=== PATIENT | male | born 1945 | race Caucasian/White ===

== ENCOUNTER → 2017-08-23 | Outpatient (CLI) | payer MEDICARE ==
[~2017-08-23] MED LIST: ANDR1.62 TOPICAL; DEPA500T3 PO; DIAZ5TAB PO; HYDR-3583 PO; METH10TA PO; NALO1SPR EACH NARE; TAMS5CAP PO; WALKER WHEELS/F1 MIS; ZOLO100T PO
[2017-08-23 09:57] LABS: AUTOMATED NEUTROPHIL # 4.1 TH/MM3 (1.8-7.7); BASOPHIL % 0.3 % (0.0-2.0); EOSINOPHIL # 0.1 TH/MM3 (0-0.4); EOSINOPHIL % 1.3 % (0.0-4.0); HEMATOCRIT 40.4 % (39.0-51.0); HEMOGLOBIN 13.8 GM/DL (13.0-17.0); LYMPH % 16.7 % (9.0-44.0); LYMPHOCYTE # 0.9 TH/MM3 (1.0-4.8); MEAN CELL VOLUME 90.8 FL (80.0-100.0); MEAN CORPUSCULAR HGB CONC 34.1 % (32.0-36.0); MEAN PLATELET VOLUME 8.4 FL (7.0-11.0); MONO % 9.4 % (0.0-8.0); MONOCYTE # 0.5 TH/MM3 (0-0.9); NEUT % 72.3 % (16.0-70.0); PLATELET COUNT 207 TH/MM3 (150-450); RED BLOOD COUNT 4.45 MIL/MM3 (4.50-5.90); RED CELL DISTRIBUTION WIDTH 13.3 % (11.6-17.2); WHITE BLOOD COUNT 5.6 TH/MM3 (4.0-11.0)
[2017-08-23 10:06] LABS: BILIRUBIN, URINE NEG (NEG); BLOOD, URINE NEG (NEG); GLUCOSE,URINE NEG (NEG); KETONE, URINE NEG (NEG); MUCUS URINE FEW /lpf (OCC); NITRITE,URINE NEG (NEG); PH, URINE 6.5 (5.0-8.5); URINE COLOR YELLOW (YELLW/STRAW); URINE LEUKOCYTE ESTERASE TRACE (NEG)
[2017-08-23 10:14] LABS: PROTHROMBIN TIME - PATIENT 10.6 SEC (9.8-11.6)
[2017-08-23 10:27] LABS: ALBUMIN 3.8 GM/DL (3.4-5.0); ALT (GPT) 13 U/L (12-78); AST (GOT) 6 U/L (15-37); BICARBONATE 32.8 MEQ/L (21.0-32.0); BLOOD UREA NITROGEN 15 MG/DL (7-18); CALCIUM 9.6 MG/DL (8.5-10.1); CHLORIDE 102 MEQ/L (98-107); CREATININE 0.96 MG/DL (0.60-1.30); GLOMERULAR FILTRATION RATE 78 ML/MIN (>89); GLUCOSE,FASTING 86 MG/DL (74-99); SODIUM (NA) 139 MEQ/L (136-145)
[2017-08-23 10:29] LABS: ALKALINE PHOSPHATASE 53 U/L (45-117); TOTAL BILIRUBIN ADULT 0.3 MG/DL (0.2-1.0); TOTAL PROTEIN 8.3 GM/DL (6.4-8.2)
--- NOTE | 2017-08-23 10:37 | RADRPT ---
EXAM DATE/TIME: 08/23/2017 09:57 [facility] COMPARISON: No previous studies available for comparison. INDICATIONS : Evaluate for pneumonia, pneumothorax or communicable disease. Pre op laminectomy. MEDICAL HISTORY : pneumothorax SURGICAL HISTORY : tracheostomy ENCOUNTER: Initial ACUITY: 1 day PAIN SCORE: 0/10 LOCATION: Bilateral chest FINDINGS: PA and lateral views of the chest demonstrate the lungs to be symmetrically aerated without evidence of mass, infiltrate or effusion. The cardiomediastinal contours are unremarkable. Osseous structure s are intact. CONCLUSION: No acute disease. Shun Mensah MD on August 23, 2017 at 10:31 Board Certified Radiologist. This report was verified electronically.
--- NOTE | 2017-08-23 14:31 | EKG ---
Date Performed: 08/23/2017 Time Performed: 07:55:30 PTAGE: 71 years EKG: Sinus rhythm NORMAL ECG NO PREVIOUS TRACING DOCTOR: Narciso Ku Interpretating Date/Time 08/23/2017 14:29:33
== END ==
LOC: CPRE 08:27
PROVIDERS: ATTEND Neurological Surgery
DX: Z01.810 Encounter for preprocedural cardiovascular examination (principal); Z01.811 Encounter for preprocedural respiratory examination; Z01.812 Encounter for preprocedural laboratory examination; Z01.818 Encounter for other preprocedural examination; M48.062 Spinal stenosis, lumbar region with neurogenic claudication
CPT/HCPCS: 36415; 71046; 80053; 81001; 85025; 85610; 85730; 87640; 87641; 93005

== ENCOUNTER 2017-08-26 06:49 | Observation (INO) | payer MEDICARE ==
[~2017-08-26] VITALS: Ht 177.8 cm; Wt 92.1 kg
[~2017-08-26 06:49] MED LIST changes: -HYDR-3583 PO; -WALKER WHEELS/F1 MIS
[2017-08-26] MEDS ORDERED: GENTAMICIN SULFATE 80 MG/2 ML VIAL ONE (07:14)
[2017-08-26] MEDS ORDERED: methylPREDNISolone ACETATE 40 MG/ML VIAL ONE (07:14)
[2017-08-26] MEDS ORDERED: THROMBIN (TOPICAL) 5,000 UNIT VIAL ONE (07:14)
[2017-08-26] MEDS ORDERED: GELFOAM SIZE 100 ONE (07:14)
[2017-08-26] MEDS ORDERED: BUPIVACAINE/EPINEPHRINE 0.5% PF 30 ML VIAL ONE (07:14)
[2017-08-26] MEDS ORDERED: METOPROLOL TARTRATE 25 MG TAB PO PRN (07:15)
[2017-08-26] MEDS ORDERED: CHLORHEXIDINE GLUCONATE 2 % 1 PACK (2 CLOTHS) TOPICAL PRN (07:15)
[2017-08-26] MEDS ORDERED: SODIUM CHLORID 0.9% 500 ML IV PRN (07:15)
[2017-08-26] MEDS ORDERED: INSULIN HUMAN REGULAR 1,000 UNITS/10 ML VIAL SQ PRN (07:15)
[2017-08-26] MEDS ORDERED: LACTATED RINGER'S 1000 ML IV PRN (07:15)
[2017-08-26] MEDS ORDERED: ceFAZolin 2 GM PREMIX 50 ML IV SCH (07:15)
[2017-08-26] MEDS ORDERED: POVIDONE IODINE 5% (ANTISEPSIS KIT) 4 APPLICATIONS EACH NARE PRN (07:15)
[2017-08-26] MEDS ORDERED: ACETAMINOPHEN 1000 MG/100 ML 100 ML IV ONE (07:40)
[2017-08-26] MEDS ORDERED: ARTIFICIAL TEARS OPTH OINT 3.5 APPLIC/3.5 GM TUBO ONE (07:40)
[2017-08-26] MEDS ORDERED: HYDROmorphone HCL PF 2 MG/ML VIAL ONE ×2 (08:17→12:48)
[2017-08-26] MEDS ORDERED: FAMOTIDINE 20 MG/2 ML VIAL ONE (08:19)
--- NOTE | 2017-08-26 11:29 | PD.OP ---
Operative Report Date of Surgery: Aug 26, 2017 Preoperative Diagnosis: Lumbar spinal stenosis Postoperative Diagnosis: Lumbar spinal stenosis Procedure: Left L3-4, L4-L5 laminectomy, mesiofacetectomy, foraminotomy, microsurgical resection of the disk Anesthesia: general Surgeon: Sundar Warren Neurological Surgeon(s): Nery Young Operation and Findings: INDICATIONS FOR THE SURGICAL PROCEDURE Mr Ash is a 71 year-old male who presented with intractable back pain and wiley evidence of L4 and L5 lower extremity radiculopathy. He failed maximum nonsurgical management including multiple modalities of conservative treatment as well as pain management interventions by an interventional pain specialist. A surgical decompression was indicated as a last resort. The [id number] details of the procedure, indications, alternatives, risks and potential complications were fully discussed with the patient. The patient fully understood. All the questions were answered. No guarantees were given. The patient voiced requesting the procedure and provided informed consents. The patient was offered the alternative of delaying the procedure and continuing with nonsurgical management. DETAILS OF THE SURGICAL PROCEDURE After the induction of general anesthesia, endotracheal intubation was performed. A Bolton catheter, bilateral MANUEL hose and sequential compression devices were placed and kept throughout the procedure. The patient was positioned prone on a Jt table over a Edgard frame. All pressure points were carefully padded with eggcrate mattress. The eyes were tapped shut after ointment was applied by the anesthesiologist to prevent corneal abrasion. A Faustino hugger was placed over the exposed lower body to maintain control of the core body temperature. The lower lumbar region was prepped and draped in the usual sterile fashion. A spinal needle was placed on the paraspinal muscle and a cross-table lateral x-ray performed with a C-arm. The skin incision was made over the spinous process of L3 and L5 along the midline. Small subcutaneous bleeders were controlled with a bipolar. The subcutaneous tissue and thoracolumbar fascia was opened with the Bovie and the spinous process of L3, L4 and L5 were exposed. Then, using a Real elevator and a Bovie a subperiosteal dissection was performed over the spinous process lamina and facet at L4 and L5 on the right side. A microdiscectomy self- retaining retractor was placed and an instrument was placed underneath the lamina of L4, and another cross-table lateral x-ray performed for radiological confirmation of the level. At this point in the procedure the operating microscope was draped in the usual sterile fashion and brought to the field. The rest of the surgical procedure was performed using microsurgical dissection technique with exception of the closure. Once the level was confirmed, a TPS drill brought to the field and a hemilaminectomy was performed at L3-L4, and L4-L5 on the left side in standard fashion using the AM-8 drill bit, exposing the ligamentum flavum. The superior free border of the ligamentum flavum was from the dura with a ligament dissector and the ligamentum flavum was carefully removed with a 3 mm thin footplate Kerrison. The ligament Flavum and facets were significantly hypertrophic resulting on mass effect on the dural sac. Then, the medial aspect of the facet was drilled and undermined and the exiting L4 and L5 nerve root was identified and followed towards the foramen. A foraminotomy was performed with a 3 mm Kerrison. Then, the TPS drill was used to undermine the base of the spinous process, in order to carry out the decompression across the midline to the contralateral side. The ligamentum flavum across the midline was dissected from the dura with a ligament dissector and carefully removed with a 3 mm thin footplate Kerrison. An appropriate decompression of the dural sac and nerve root was achieved. Epidural veins located laterally to the dural sac were carefully coagulated with a bipolar and incised with microscissors. Gentle medial retraction of the dural sac allowed inspection of the disc space. The patient had a broad-based disc protusion which combined with the hypertrophic facets and ligamentun flavum was producing significant stenosis with mass effect on the dural sac and nerve root. Microdiscectomy was then deemed necessary. The annulus fibrosus was thoroughly coagulated with the bipolar and incised with a #10 blade. Then, a microdiscectomy was carried out in the standard fashion using straight and up-biting pituitary forceps. A reverse angle curet was used to push the extruded disc fragments into the disc space so they could be removed with pituitary forceps. Special attention was placed on the middle nerve root and axilla of the nerve root where disc fragments were found, which were carefully dissected and pushed into the disc space and removed with the Kerrison. A good decompression was achieved. The disc space was then irrigated with antibiotic solution. The incision was then thoroughly irrigated with antibiotic solution and hemostasis secured with the bipolar. A Valsalva maneuver failed to show any cerebrospinal fluid leak or bleeding. The incision was irrigated and closed in layers. 0 Vicryl with interrupted sutures was used to close the thoracolumbar fascia and superficial fascia. The subcutaneous tissue was closed with 3-0 Vicryl. The skin was closed with 4-0 running subcuticular Vicryl. Dermabond was applied to the skin. At the end of the procedure, the sponge, needle and instrument counts were all correct. Estimated blood loss was less than 80 cc. No blood transfusion was given. No intraoperative complications occurred. The patient received prophylactic antibiotics. The patient was then extubated and transferred to the recovery room in stable condition. Sundar Warren MD Aug 26, 2017 11:29
[2017-08-26] MEDS ORDERED: DIVALPROEX SODIUM E.R. 500 MG TAB PO SCH (11:30)
[2017-08-26] MEDS ORDERED: NALOXONE HCL EACH NARE PRN (11:30)
[2017-08-26] MEDS ORDERED: MORPHINE SULFATE 4 MG/ML INJ IV PUSH PRN ×2 (11:30)
[2017-08-26] MEDS ORDERED: DIAZEPAM 5 MG TAB PO PRN (11:30)
[2017-08-26] MEDS ORDERED: ACETAMINOPHEN 325 MG TAB PO PRN (11:30)
[2017-08-26] MEDS ORDERED: ACETAMINOPHEN/HYDROcodone 325 MG/10 MG TAB PO PRN (11:30)
[2017-08-26] MEDS ORDERED: HYDR-3583 PO (11:32)
[2017-08-26] MEDS ORDERED: *morphine SULFATE 10 MG/ML PERIprocedure ONLY ONE (11:56)
[2017-08-26] MEDS ORDERED: MIDAZOLAM HCL 2 MG/2 ML VIAL ONE (11:57)
[2017-08-26] MEDS ORDERED: NEOSTIGMINE 5 MG/5 ML SYRINGE IV PUSH ONE (12:00)
[2017-08-26] MEDS ORDERED: LIDOCAINE HCL 1% PF 5 ML SYRINGE OTHER ONE (12:00)
[2017-08-26] MEDS ORDERED: PROPOFOL 200 MG/20 ML AMP IV ONE (12:00)
[2017-08-26] MEDS ORDERED: DEXAMETHASONE SOD PHOS 4 MG/ML VIAL IV ONE (12:00)
[2017-08-26] MEDS ORDERED: LABETALOL HCL 100 MG/20 ML VIAL IV ONE (12:00)
[2017-08-26] MEDS ORDERED: GLYCOPYRROLATE 1 MG/5 ML SYRINGE IV PUSH ONE (12:00)
[2017-08-26] MEDS ORDERED: PHENYLEPH/NS 1000 MCG/10 ML SYR IV ONE (12:00)
[2017-08-26] MEDS ORDERED: ePHEDrine/NS 25 MG/5 ML SYRINGE IV ONE (12:00)
[2017-08-26] MEDS ORDERED: LACTATED RINGER'S 1000 ML INJ 1,000 ML IV ONE (12:00)
[2017-08-26] MEDS ORDERED: ROCURONIUM INJ 50 MG/5 ML SYRINGE IV PUSH ONE (12:00)
[2017-08-26] MEDS ORDERED: ONDANSETRON HCL 4 MG/2 ML VIAL IV ONE (12:00)
[2017-08-26] MEDS: METHADONE HCL 10 MG TAB PO SCH ×2 (12:07→21:21)
[2017-08-26] MEDS ORDERED: *MEPERIDINE 25 MG INJ VIAL PERIprocedural Use ONLY ONE (12:10)
[2017-08-26] MEDS: NS + KCL 20 MEQ INJ 1,000 ML IV SCH (12:30)
[2017-08-26] MEDS ORDERED: DO NOT ADM ANY ANTICOAGULANT DRUGS PRN (13:15)
--- NOTE | 2017-08-26 13:58 | RADRPT ---
EXAM DATE/TIME: 08/26/2017 09:29 [facility] COMPARISON: No previous studies available for comparison. INDICATIONS : Laminectomy, discectomy level loc. MEDICAL HISTORY : None. SURGICAL HISTORY : None. ENCOUNTER: Initial ACUITY: 1 day PAIN SCORE: Non-responsive. LOCATION: lumbar spine FINDINGS: Metallic probe at the pedicle of L3. CONCLUSION: Location as above. Brennan Menezes MD FACR on August 26, 2017 at 13:55 Board Certified Radiologist. This report was verified electronically.
--- NOTE | 2017-08-26 13:59 | RADRPT ---
EXAM DATE/TIME: 08/26/2017 09:29 [facility] COMPARISON: No previous studies available for comparison. INDICATIONS : Laminectomy, diskectomy. Level loc L4-5 MEDICAL HISTORY : None. SURGICAL HISTORY : None. ENCOUNTER: Initial ACUITY: 1 day PAIN SCORE: Non-responsive. LOCATION: Lumbar spine FINDINGS: Metallic probe at L4-5 disc space. CONCLUSION: Probe as above Brennan Menezes MD FACR on August 26, 2017 at 13:56 Board Certified Radiologist. This report was verified electronically.
--- NOTE | 2017-08-26 14:06 | HHI.DCPOC ---
Discharge Care Plan Diagnosis: (1) S/P lumbar laminectomy Goals to Promote Your Health * To prevent worsening of your condition and complications * To maintain your health at the optimal level Directions to Meet Your Goals Take your medications as prescribed Follow your dietary instruction Follow activity as directed Keep your appointments as scheduled Take your immunizations and boosters as scheduled If your symptoms worsen call your PCP, if no PCP go to Urgent Care Center or Emergency Room Smoking is Dangerous to Your Health. Avoid second hand smoke Call the 24-hour hour crisis hotline for domestic abuse at Anne Marie Marshall Aug 26, 2017 14:06
[2017-08-26 16:00] VITALS: BP 127/62; PULSE 68; RESP 16; TEMP 96.7; O2SAT 97
[2017-08-26] MEDS: ceFAZolin 2 GM PREMIX 50 ML IV SCH (17:30)
[2017-08-26] MEDS: ACETAMINOPHEN/HYDROcodone 325 MG/10 MG TAB PO PRN ×2 (17:30→23:30)
[2017-08-26] MEDS: PHENAZOPYRIDINE HCL 100 MG TAB PO SCH ×2 (18:38→21:21)
[2017-08-26 20:00] VITALS: BP 114/57; PULSE 73; RESP 17; TEMP 96.2; O2SAT 97
[2017-08-26] MEDS ORDERED: TAMSULOSIN HCL 0.4 MG CAP PO SCH (21:00)
[2017-08-26] MEDS: DOCUSATE SODIUM 100 MG CAP PO SCH (21:21)
[2017-08-27] VITALS: BP 128/61; PULSE 77; RESP 16; TEMP 96.4; O2SAT 94
[2017-08-27] MEDS: ceFAZolin 2 GM PREMIX 50 ML IV SCH ×2 (01:35→10:00)
[2017-08-27] MEDS: NS + KCL 20 MEQ INJ 1,000 ML IV SCH ×2 (01:36→07:26)
[2017-08-27 04:00] VITALS: BP 145/63; PULSE 78; RESP 16; TEMP 95.9; O2SAT 95
[2017-08-27] MEDS: ACETAMINOPHEN/HYDROcodone 325 MG/10 MG TAB PO PRN ×2 (05:00→10:07)
[2017-08-27] MEDS: PHENAZOPYRIDINE HCL 100 MG TAB PO SCH (05:00)
[2017-08-27 08:00] VITALS: BP 125/69; PULSE 55; RESP 18; TEMP 95.9; O2SAT 96
[2017-08-27] MEDS ORDERED: TESTOSTERONE TOPICAL SCH (09:00)
[2017-08-27] MEDS ORDERED: DIVALPROEX SODIUM E.R. 500 MG TAB PO SCH (09:00)
[2017-08-27] MEDS ORDERED: PANTOPRAZOLE SOD 40 MG DELAYED RELEASE TAB PO SCH (09:00)
[2017-08-27] MEDS: DOCUSATE SODIUM 100 MG CAP PO SCH (09:00)
[2017-08-27] MEDS ORDERED: SERTRALINE HCL 100 MG TAB PO SCH (09:00)
[2017-08-27] MEDS: METHADONE HCL 10 MG TAB PO SCH (09:07)
[2017-08-27] MEDS ORDERED: WALKER WHEELS/F1 MIS (10:06)
--- NOTE | 2017-08-30 14:13 | HHI.DS ---
Discharge Summary Admission Date Aug 26, 2017 at 11:29 Discharge Date: Aug 27, 2017 Admitting Diagnosis s/p lumbar laminectomy (1) S/P lumbar laminectomy ICD Code: Z98.890 - Other specified postprocedural states Brief History Mr Ash is a 71 year-old male who presented with intractable back pain and wiley evidence of L4 and L5 lower extremity radiculopathy. He failed maximum nonsurgical management including multiple modalities of conservative treatment as well as pain management interventions by an interventional pain specialist. A surgical decompression was indicated as a last resort. Hospital Course Mr. Ash underwent a left L3-4, L4-L5 laminectomy, mesiofacetectomy, foraminotomy, microsurgical resection of the disk Aug 26, 2017 for lumbar spinal stenosis. His surgery went well without complications. He was discharged home the following day in stable conditions. Pt Condition on Discharge: Stable Discharge Disposition: Discharge Home Discharge Instructions DIET: Follow Instructions for: Heart Healthy Diet ACTIVITIES You can perform: Weight Bearing [place] ADDITIONAL Activity Instructio: Avoid strenuous activities, heavy lifting over 5 lbs, overhead activities, repetitive bending, twisting, pushing, pulling or any activities which might result in stress over the spine. Avoid situation that will put at risk for falls. Use assistive device as needed for walking. Wear provided back brace when out of bed. New Medications: Hydrocodone-Acetaminophen (Hydrocodone-Acetaminophen) 10-325 mg Tab 1 TAB PO Q8H PRN for PAIN, #62 TAB 0 Refills Walker with Front Wheels (Walker with Front Wheels) 1 Mis Mis EA .XX DIRECTED, #1 0 Refills Continued Medications: Diazepam (Diazepam) 5 Mg Tab 5 MG PO Q6HR PRN for ANXIETY Divalproex ER (Depakote ER) 500 Mg David 1000 MG PO DAILY for Control Seizures, #60 TAB 0 Refills Divalproex ER (Depakote ER) 500 Mg David 500 MG PO DAILY for Control Seizures, #30 TAB 0 Refills Methadone (Methadone) 10 Mg Tab 10 MG PO BID Naloxone HCl (Narcan) 4 Mg/Actuation [place] 1 SPRAY EACH NARE ONCE PRN for OVERDOSE Sertraline (Zoloft) 100 Mg Tab 200 MG PO DAILY, #30 TAB 0 Refills Tamsulosin (Flomax) 0.4 Mg Cap 0.4 MG PO DAILY for Manage Prostate Problems, #30 CAP 0 Refills Testosterone Topical (Androgel Pump Topical) 20.25/1.25 Gel 1 APPLIC TOPICAL DAILY Anne Marie Marshall Aug 30, 2017 14:13
== END 2017-08-27 11:04 | disposition home or self-care (01) ==
LOC: HSDC 06:49 → HSDI 11:29 → N06A 13:17
PROVIDERS: ADMIT Neurological Surgery; ATTEND Neurological Surgery
DX: M48.061 Spinal stenosis, lumbar region without neurogenic claudication (principal); M54.16 Radiculopathy, lumbar region; K21.9 Gastro-esophageal reflux disease without esophagitis; M81.0 Age-related osteoporosis without current pathological fracture; Z86.73 Personal history of transient ischemic attack (TIA), and cerebral infarction without residual deficits
CPT/HCPCS: 00630; 63047; 63048; 72020; 76000; 94150; 97162; 97530; G0378; J0131; J0690; J1030; J1100; J1170; J1580; J2175; J2250; J2270; J2370; J2405; J2710; J3010; J3480; J7120; L0627